=== PATIENT | female | born 1950 | race Asian ===

== ENCOUNTER 2017-05-21 14:27 | Emergency (ER) | payer MEDICARE, MEDICAID ==
[~2017-05-21] VITALS: Ht 152.4 cm; Wt 50.0 kg
[2017-05-21 14:58] LABS: HEMATOCRIT 36.8 % (34.6-47.8); HEMOGLOBIN 11.8 g/dL (11.7-16.4); WHITE BLOOD COUNT 7.6 x10^3/uL (3.4-10)
[2017-05-21 15:09] LABS: BLOOD UREA NITROGEN 22 mg/dL (7-18)
[2017-05-21 16:25] VITALS: BP 100/66
[2017-05-21] MEDS ORDERED: SODIUM CHLORIDE FLUSH 10ML SYR IVF ONE (17:00)
[2017-05-21] MEDS ORDERED: SODIUM CHLORIDE 0.9% 1,000ML IVBOLUS ONE (17:00)
== END 2017-05-21 19:03 ==
LOC: ED 18:15
DX: G25.9 Extrapyramidal and movement disorder, unspecified (principal); F20.9 Schizophrenia, unspecified
CPT/HCPCS: 36415; 70450; 80048; 82040; 85025; 96360; 99285; J7030